=== PATIENT | male | born 1930 | race Caucasian/White ===

== ENCOUNTER 2017-12-09 01:53 | Emergency (ER) | payer MEDICARE, OTHER ==
[2017-12-09 04:23] LABS: Bilirubin Negative (Negative); Blood, Urine Negative (Negative); Clarity CLEAR (Clear); Glucose, Urine (Dipstick) Negative (Negative); Leukocyte Negative (Negative); Nitrite Negative (Negative); Protein, Urine (Dipstick) Negative (Neg-Trace); Specific Gravity, Urine 1.005 (1.002-1.036); Urobilinogen 0.2 mg/dL (0.2-1.0); pH, Urine 6.5 (5.0-9.0)
== END 2017-12-09 05:19 | disposition home or self-care (01) ==
LOC: ERS 01:53
DX: N40.1 Benign prostatic hyperplasia with lower urinary tract symptoms (principal); R33.8 Other retention of urine; I25.10 Atherosclerotic heart disease of native coronary artery without angina pectoris; I10 Essential (primary) hypertension; G47.30 Sleep apnea, unspecified; F41.9 Anxiety disorder, unspecified; F32.9 Major depressive disorder, single episode, unspecified; Z79.899 Other long term (current) drug therapy; Z79.82 Long term (current) use of aspirin
CPT/HCPCS: 51702; 81003; 87086

== ENCOUNTER 2017-12-11 12:19 | Outpatient (CLI) | payer MEDICARE, OTHER ==
[2017-12-11 13:49] LABS: PTT 28.9 SEC (22.9-36.1); Prothrombin Time 12.9 SEC (12.0-14.7)
[2017-12-11 13:59] LABS: Hemoglobin 14.7 g/dL (14.0-18.0); Mean Corpuscular HGB CONC 33.2 g/dL (32.0-36.0); Mean Corpuscular Hemoglobin 31.4 pg (27.0-31.0); Mean Corpuscular Volume 94.6 fL (78.0-98.0); Mean Platelet Volume 7.6 fL (7.4-10.4); Platelet Count 146 thou/uL (130-400); Red Blood Cell (RBC) Count 4.68 mill/uL (4.70-6.10)
[2017-12-11 14:18] LABS: Anion Gap 11 mmol/L (10-20); BUN (Urea Nitrogen) 21 mg/dL (8.4-25.7); Calc. Creatinine Clearance 0 mL/min (70-130); Calcium 10.1 mg/dL (7.8-10.44); Carbon Dioxide 23 mmol/L (23-31); Chloride 106 mmol/L (98-107); Estimated GFR-MDRD 66; Glucose 96 mg/dL (83-110); Potassium 4.4 mmol/L (3.5-5.1); Sodium 136 mmol/L (136-145)
== END 2017-12-11 12:20 | disposition home or self-care (01) ==
LOC: LABBT 12:19
PROVIDERS: ATTEND Urology
DX: Z01.812 Encounter for preprocedural laboratory examination (principal); N32.0 Bladder-neck obstruction; R33.9 Retention of urine, unspecified
CPT/HCPCS: 80048; 85027; 85610; 85730

== ENCOUNTER 2017-12-16 06:19 | Day surgery (SDC) | payer MEDICARE, OTHER ==
[2017-12-11 12:55] VITALS: BMI 26.2
[2017-12-16] MEDS ORDERED: Famotidine/PF 20 mg/2ml Vial ONE (06:39)
[2017-12-16] MEDS ORDERED: Fentanyl 100 MCG/2 ML VIAL ONE (06:39)
[2017-12-16] MEDS ORDERED: Iothalamate Meglumine 60% 50 ML VIAL FS ONE (06:51)
[2017-12-16] MEDS ORDERED: Levofloxacin 500 mg/D5W 100 ml Premix Bag ONE (07:21)
--- NOTE | 2017-12-16 09:04 | OP ---
DATE OF PROCEDURE: 12/16/2017 PREOPERATIVE DIAGNOSES: Neurogenic bladder, bladder neck obstruction. POSTOPERATIVE DIAGNOSES: Neurogenic bladder, bladder neck obstruction. PROCEDURE PERFORMED: Cysto, laser VIU. SURGEON: Dr. Harry Casas. ANESTHETIC: General. ESTIMATED BLOOD LOSS: Minimal. DRAINS PLACED: 20 Citizen [place] Canales catheter. FINDINGS: He had no evidence of anterior urethral stricture disease. He had some narrowing of the b ladder neck region with minimal BPH regrowth. We lasered the bladder neck to get it open so a 22 [place] n[place] scope easily went in and out. The bladder itself was examined with both 30 and 70 degree lens. There was no tumor, foreign body, or stone. There were 2 ureteral orifices in normal position. DRAINS PLACED: A 20 [place] Canales catheter with a 10 mL balloon. We placed 20 mL in the balloon. OPERATIVE TECHNIQUE: After obtaining written and verbal consent from the patient after receiving IV antibiotics, he was taken to the operating suite. He was placed in supine position on the treatment table. PlexiPulses were placed on his lower extremities and turned on. He was given a general anest hetic and oral intubation. He was placed in the dorsal lithotomy position and sterilely prepped and draped for cystoscopy. Cystoscopy was done with a 22-Citizen [place] sheath. This was well lubricated, passe d down to the level of the bladder neck which was mildly tight to it. He had had a small caliber cat heter in for a few days, so we were able to get the catheter through and then we examined the bladder with the 30 and 70-degree lens with the findings above. We then went back to the 30 degree lens and with the aid of a video camera and monitor used the Holmium laser fiber to open up the scarred area of the bladder neck. At this point a Canales catheter was placed and the balloon was inflated. It wa s draining clear urine and set up to a leg bag and he was taken out of the dorsal lithotomy position, awakened and extubated and taken by stretcher to the recovery room.
[2017-12-16] MEDS ORDERED: PROPOFOL 200 MG/20 ML VIAL ONE (12:13)
[2017-12-16] MEDS ORDERED: Lidocaine 1% PF 5 ML VIAL ONE (12:13)
[2017-12-16] MEDS ORDERED: Ondansetron HCl/PF 4 MG/2 ML Vial ONE (12:13)
[2017-12-16] MEDS ORDERED: Dexamethasone 20 MG/5 ML VIAL ONE (12:13)
[2017-12-16] MEDS ORDERED: Succinylcholine Chloride 20 MG/ML 10 ml SYRINGE FS ONE (12:13)
== END 2017-12-16 11:25 | disposition home or self-care (01) ==
LOC: SDC 06:19
PROVIDERS: ATTEND Urology
PROC: 0T7D8ZZ Dilation of Urethra, Via Natural or Artificial Opening Endoscopic (ICD-10-PCS; principal; 2017-12-16)
DX: N32.0 Bladder-neck obstruction (principal); N31.9 Neuromuscular dysfunction of bladder, unspecified; R33.8 Other retention of urine; I10 Essential (primary) hypertension; E78.00 Pure hypercholesterolemia, unspecified; K58.9 Irritable bowel syndrome, unspecified; I25.10 Atherosclerotic heart disease of native coronary artery without angina pectoris; I25.2 Old myocardial infarction; Z88.0 Allergy status to penicillin; Z88.2 Allergy status to sulfonamides
CPT/HCPCS: J1100; J1956; J2001; J2405; J2704; J3010; Q9961; S0028

== ENCOUNTER 2018-05-23 09:50 | Outpatient (CLI) | payer MEDICARE, OTHER ==
--- NOTE | 2018-05-23 11:00 | RAD ---
CHEST TWO VIEWS: HISTORY: Dyspnea. COMPARISON: 04/14/2012 FINDINGS: Postop midline sternotomy. Minimal stable increased linear and interstitial markings bilaterally wit h some biapical pleural thickening. No confluent pneumonia, overt edema, pleural effusion, or other acute process. IMPRESSION: 1. Minimal stable chronic changes. 2. Postoperative midline sternotomy. 3. Atherosclerosis of the aorta. 4. No acute process. POS: [facility]
== END 2018-05-23 09:51 | disposition home or self-care (01) ==
LOC: RAD 09:50
PROVIDERS: ATTEND Internal Medicine
DX: R06.00 Dyspnea, unspecified (principal); I70.0 Atherosclerosis of aorta; Z98.890 Other specified postprocedural states
CPT/HCPCS: 71046

== ENCOUNTER 2018-11-14 18:24 | Emergency (ER) | payer MEDICARE, OTHER ==
[2018-11-14 19:53] LABS: #Eosinphils 0.4 thou/uL (0.0-0.7); #Lymphocytes 1.1 thou/uL (1.20-3.40); #Monocytes 0.8 thou/uL (0.11-0.59); #Neutrophils 5.4 thou/uL (1.40-6.50); %Basophils 0.3 % (0.0-1.0); %Eosinophils 5.1 % (0.0-10.0); %Lymphocytes 13.7 % (21.0-51.0); %Monocytes 10.3 % (0.0-10.0); %Neutrophils 70.6 % (42.0-75.0); Hemoglobin 13.6 g/dL (14.0-18.0); Mean Corpuscular Volume 93.5 fL (78.0-98.0); Mean Platelet Volume 6.3 fL (7.4-10.4); Platelet Count 179 thou/uL (130-400); RBC Distribution Width 12.9 % (11.5-14.5); Red Blood Cell (RBC) Count 4.55 mill/uL (4.70-6.10); White Blood Cell (WBC) Count 7.6 thou/uL (4.8-10.8)
[2018-11-14 20:15] LABS: ALT (SGPT) 22 U/L (8-55); AST (SGOT) 26 U/L (5-34); Albumin 4.1 g/dL (3.4-4.8); Alkaline Phosphatase 70 U/L (40-150); Anion Gap 12 mmol/L (10-20); BUN (Urea Nitrogen) 20 mg/dL (8.4-25.7); Bilirubin, Total 0.4 mg/dL (0.2-1.2); Calc. Creatinine Clearance 0 mL/min (70-130); Calcium 10.5 mg/dL (7.8-10.44); Carbon Dioxide 22 mmol/L (23-31); Chloride 102 mmol/L (98-107); Estimated GFR-MDRD 66; Globulin 2.8 g/dL (2.4-3.5); Glucose 102 mg/dL (83-110); Protein, Total 6.9 g/dL (5.8-8.1); Sodium 132 mmol/L (136-145)
[2018-11-14 21:01] LABS: Bacteria/HPF 4+ HPF (None Seen); Bilirubin Negative (Negative); Blood, Urine Negative (Negative); Clarity Clear (Clear); Glucose, Urine (Dipstick) Normal (Negative); Leukocyte 250 Leu/uL (Negative); Mucous/LPF Rare LPF (<2+); Nitrite 1+ (Negative); Protein, Urine (Dipstick) Negative (Neg-Trace); RBC/HPF 0-3 HPF (0-3); Squamous Epithelial None Seen HPF (0-3); Urobilinogen Normal mg/dL (Less than 2)
== END 2018-11-14 21:36 | disposition home or self-care (01) ==
LOC: ERS 18:24
DX: N39.0 Urinary tract infection, site not specified (principal); I25.10 Atherosclerotic heart disease of native coronary artery without angina pectoris; G47.30 Sleep apnea, unspecified; F41.9 Anxiety disorder, unspecified; F32.9 Major depressive disorder, single episode, unspecified; Z79.82 Long term (current) use of aspirin; Z79.899 Other long term (current) drug therapy
CPT/HCPCS: 36415; 51702; 80053; 81003; 81015; 85025; 87077; 87086; 87186